=== PATIENT | female | born 1945 | race Caucasian/White ===

== ENCOUNTER 2019-09-23 17:03 | Emergency (ER) | payer MEDICARE, OTHER ==
[~2019-09-23 17:03] MED LIST: DEXTROSE 50% SYRINGE 50 ML IVP ONE; EPINEPHrine 10 ML SYRINGE (0.1 MG/ML) ONE; SODIUM BICARB 8.4% 50 ML SYR (1 MEQ/ML) ONE
[2019-09-23 17:35] VITALS: BP 0/0; PULSE 0; RESP 0
--- NOTE | 2019-09-23 17:39 | ED ---
CPR HPI - General Stated Complaint: Cardiac Arrest Time Seen by Provider: 09/23/19 17:03 Source: family, EMS, RN notes reviewed Mode of arrival: EMS - History of Present Illness Initial Comments: This a 73-year-old female history of cardiac arrhythmia of some type as well as COPD who had the onset 4 days ago generally not feeling well. She had some shortness of breath along with it. This persisted over the last several days. The patient's son states that he talked to her this morning a couple times and she sounded as if she didn't feel well but she was able to communicate. He went over to see her after he got off of work today and said she did not look very well so he called 911. Paramedics did respond she was found to have a heart rate between the 50s and 60s with palpable pulses respiratory rate in the mid to high 30s. The blood glucose of 65. After she was initially evaluated the patient was given atropine IV by that same time she became pulseless and had neck. Patient was intubated with a #6 endotracheal tube. Patient was placed on a Teddy 3 device and CPR/ACLS was continued. She was brought into the emergency department with CPR in progress. MD Complaint: other Review of Systems ROS Statement: Those systems with pertinent positive or pertinent negative responses have been documented in the HPI. ROS Other: All systems not noted in ROS Statement are negative. Limitations: ROS unobtainable due to patients medical condition General Exam - General Exam Comments Initial Comments: This is a well-developed asthenic appearing female who is unresponsive with CPR progress Limitations: altered mental status, physical limitation General appearance: other Head exam: Present: atraumatic Eye exam: Present: other (Pupils fixed and dilated about 5 mm equal) ENT exam: Present: other (#6 oral tracheal tube in place I did confirm placement with a #3 Riley blade and direct visualization.) Neck exam: Present: normal inspection, other (No pulses) Respiratory exam: Present: other (Breast sounds with bagging attempts none without) Cardiovascular Exam: Present: other (Pulseless except for the use of the Teddy device) GI/Abdominal exam: Present: soft, distended Rectal exam: Present: deferred Extremities exam: Present: normal inspection Back exam: Present: normal inspection Neurological exam: Present: other (Unresponsive) Psychiatric exam: Present: other (Unresponsive) Skin exam: Present: other (Skin cool and demonstrating pallor) Course Vital Signs 09/23/19 17:05 Pulse Rate 0 L Respiratory 0 L Rate Blood Pressure 0/0 - Reevaluation(s) Reevaluation #1: 09/23/19 17:38 ACLS was continued for a period time but to no avail patient remained pulseless apneic and was pronounced at 1709 p.m. Patient did arrive the emergency department at 1700 hrs. The initial ACLS was started at 1639. Reevaluation #2: 09/23/19 17:38 I did discuss the initial findings with the patient's son who did come to the hospital. Additionally chief medical physicist's office was contacted. Reevaluation #3: 09/23/19 18:37 Case was discussed the chief medical physicist's office patient will be evaluated by me. Medical Decision Making - Medical Decision Making The patient did present to a hospital in cardiac arrest pulseless at neck. CPR was in progress. The initial CPR starting at 1630 9 PM ACLS with medications was continued until it was determined to be futile and the patient was pronounced at 1709 p.m. Critical Care Time Critical Care Time: Yes Critical Care Time: 31 minutes of critical care time which includes initial presentation with history physical as well as her information obtained from paramedics. This does include the treatment time as well as discussion with the patient's family with the chief medical physicist's office revealed medications that were available. This also includes documentation the above. Disposition Clinical Impression: Cardiac arrest, Sudden cardiac Disposition: Referrals: Nonstaff,Physician [Primary Care Provider] - 1-2 days Preliminary Cause of : Sudden cardiac
== END 2019-09-23 18:34 | disposition expired ==
LOC: EC 17:03
DX: I46.9 Cardiac arrest, cause unspecified (principal)
CPT/HCPCS: 99291; 92950; J0171